=== PATIENT | female | born 1940 | race Caucasian/White ===

== ENCOUNTER → 2016-12-01 | Outpatient (CLI) | payer OTHER, MEDICARE | LOC: BRMIMAGING 14:38 | PROVIDERS: ATTEND Family Medicine | DX: Z13.820 Encounter for screening for osteoporosis (principal); M81.0 Age-related osteoporosis without current pathological fracture; R29.890 Loss of height; Z82.62 Family history of osteoporosis; Z78.0 Asymptomatic menopausal state; Z87.81 Personal history of (healed) traumatic fracture ==